=== PATIENT | male | born 1980 | race Two or more races ===

== ENCOUNTER 2022-08-06 00:59 | Emergency (ER) | payer MEDICAID ==
[~2022-08-06] VITALS: Ht 167.6 cm; Wt 102.0 kg
[2022-08-06 02:16] LABS: BASOPHILS # (AUTO) 0.1 X10'3 (0-0.2); BASOPHILS % (AUTO) 0.9 % (0-1); EOSINOPHILS # (AUTO) 0.2 X10'3 (0-0.9); EOSINOPHILS % (AUTO) 1.8 % (0-6); HEMATOCRIT 45.6 % (42.0-52.0); HEMOGLOBIN 15.5 g/dl (14.0-17.9); LYMPHOCYTES # (AUTO) 4.2 X10'3 (1.1-4.8); LYMPHOCYTES % (AUTO) 46.3 % (21-51); MEAN CORPUSCULAR HEMOGLOBIN 31.3 PG (27.0-31.0); MEAN CORPUSCULAR HGB CONC 34.1 g/dL (33.0-36.5); MEAN CORPUSCULAR VOLUME 91.7 FL (78-98); MEAN PLATELET VOLUME 7.3 FL (7.4-10.4); MONOCYTES # (AUTO) 0.6 X10'3 (0-0.9); MONOCYTES % (AUTO) 6.8 % (2-12); NEUTROPHILS % (AUTO) 44.2 % (42-75); PLATELET COUNT 239 X10'3 (140-440); RED BLOOD COUNT 4.97 X10'6 (4.70-6.10); RED CELL DISTRIBUTION WIDTH 13.2 % (11.5-14.5)
[2022-08-06 02:30] LABS: ALANINE AMINOTRANSFERASE 39 U/L (12-78); ALBUMIN 3.8 G/DL (3.4-5.0); ALBUMIN/GLOBULIN RATIO 1.5 (1.1-1.5); ALKALINE PHOSPHATASE 62 IU/L (46-116); ANION GAP 5 (8-16); ASPARTATE AMINO TRANSFERASE 24 U/L (10-37); BILIRUBIN,TOTAL 0.2 MG/DL (0.1-1.0); BLOOD UREA NITROGEN 13 MG/DL (7-18); BUN/CREATININE RATIO 11.6 (10.0-20.0); CHLORIDE 106 MMOL/L (99-107); CREATINE KINASE 577 U/L (39-308); CREATININE 1.12 MG/DL (0.60-1.10); GLUCOSE 108 MG/DL (70-104); POTASSIUM 3.5 MMOL/L (3.5-5.1); SODIUM 143 MMOL/L (135-145); TOTAL CARBON DIOXIDE 32.3 MMOL/L (24-32); TOTAL PROTEIN 6.4 G/DL (6.4-8.2); eGFR 72 ML/MIN
[2022-08-06] MEDS ORDERED: HYDROcodone/acetaminophen 5mg/325mg tablet PO ONE (05:10)
[2022-08-06 05:16] LABS: COLOR,URINE YELLOW (Yellow); GLUCOSE, URINE NEGATIVE (Neg); KETONES,URINE NEGATIVE (Neg); LEUKOCYTE ESTERASE ,URINE NEGATIVE (Neg); NITRITES, URINE NEGATIVE (Neg); OCCULT BLOOD,URINE NEGATIVE (Neg); PH,URINE 6.5 (4.8-8.0); PROTEIN,URINE NEGATIVE (Neg); UROBILINOGEN,URINE 0.2 E.U/dL (0.2-1.0)
[2022-08-06 05:22] LABS: CLARITY,URINE SLIGHTLY CLOUDY (Clear); UA COLLECTION TYPE CLN CATCH MIDSTREAM
[2022-08-06 05:25] LABS: AMORPHOUS PHOSPHATES 1+; BACTERIA,URINE NONE SEEN /HPF (Neg); MUCUS STRANDS FEW /LPF (Neg); RBC,URINE 0-2 /HPF (0-2); SQUAMOUS EPITHELIAL CELL,UR FEW /LPF (FEW); WBC,URINE 0-4 /HPF (0-4)
[2022-08-06 05:26] LABS: HYALINE CASTS 0-3 /LPF (NEGATIVE)
[2022-08-06 05:47] VITALS: BP 136/86
--- NOTE | 2022-08-06 06:23 | NUR ---
Assumed care from NOC nurse. Pt in stable condition. Pt laying on gurney HOB elevated. Educated Pt to POC. Pt in agreement.
[2022-08-06] MEDS ORDERED: morphine 4 MG/ML inj SYRINge IV STA (12:19)
[2022-08-06] MEDS ORDERED: ondansetron/PF 4mg/2ml inj IV STA (12:19)
[2022-08-06] MEDS ORDERED: ketorolac trometh inj. 60 MG/2 ML VIAL IM ONE (12:20)
--- NOTE | 2022-08-06 12:21 | NUR ---
Report called to [facility]. Spoke to Stacy. IV was placed prior to depart. Pt was given Morphine 4 mg, Zofran 4mg IV for c/o 9/10 pain in his neck.
--- NOTE | 2022-08-06 12:23 | NUR ---
Pt was transferred via gurney. By EMS.
== END 2022-08-06 12:40 | disposition short-term general hospital (02) ==
LOC: ER 01:00
DX: G95.20 Unspecified cord compression (principal)
CPT/HCPCS: 36415; 72125; 72128; 72131; 72141; 72146; 72148; 72192; 80053; 81001; 82550; 85025; 96374; 96375; 99285; J2270; J2405